=== PATIENT | male | born 1995 | race African-American/Black ===

== ENCOUNTER 2019-06-27 21:43 | Emergency (ER) | payer SELFPAY ==
[2019-06-27 21:45] VITALS: BP 139/76; PULSE 77; RESP 20; O2SAT 100
--- NOTE | 2019-06-27 21:54 | DI.RAD.S_ITS ---
PROCEDURE: XR CHEST 1V INDICATIONS: chest pain TECHNIQUE: One view of the chest was acquired. COMPARISON: None. FINDINGS: Surgical changes and devices: None. Lungs and pleura: Lungs are clear. No pleural effusions or pneumothorax. Mediastinum: Mediastinal contours appear normal. Heart size is normal. Bones and chest wall: No suspicious bony lesions. Overlying soft tissues appear unremarkable. IMPRESSION: Normal for age, source of current chest pain symptoms is not seen. Dictated by: Sd Wilburn M.D. on 06/28/2019 at 5:51 Approved by: Sd Wilburn M.D. on 06/28/2019 at 5:52
[2019-06-27 22:16] LABS: Add Manual Diff / Slide Review NO; Basophils Absolute Auto 0 /uL (0-100); Basophils Percent Auto 0.6 % (0-2); Eosinophils Absolute Auto 100 /uL (0-450); Eosinophils Percent Auto 1.9 % (2-4); Hematocrit 45.9 % (41-53); Hemoglobin 16.2 g/dL (13.5-17.5); Lymphocytes Absolute Auto 2900 /uL (1100-4500); Lymphocytes Percent Auto 51.3 % (25-40); Mean Corpuscular HGB Conc 35.2 % (30-36); Mean Corpuscular Hemoglobin 30.1 PG (26-34); Mean Corpuscular Volume 85.6 fL (80-100); Monocytes Absolute Auto 400 /uL (0-900); Monocytes Percent Auto 6.8 % (3-14); Neutrophils Absolute Auto 2200 /uL (1500-7000); Neutrophils Percent Auto 39.4 % (50-75); Platelet Count 174 X10^3/uL (150-400); Red Blood Cell Count 5.36 X10^6/uL (4.5-5.9); Red Cell Distribution Width 13.5 % (11.6-14.8); White Blood Cell Count 5.6 X10^3/uL (4.5-11.0)
[2019-06-27 22:18] LABS: INR 1.2 (0.9-1.3); Prothrombin Time 13.3 SECONDS (10.1-12.7)
[2019-06-27 22:21] LABS: PTT Partial Thromboplastin Tim 34 SECONDS (26.4-36.2)
[2019-06-27 22:23] LABS: Alanine Aminotransferase 20 IU/L (21-72); Albumin 4.3 g/dL (3.5-5.0); Albumin Globulin Ratio 1.2 (1.0-2.8); Alkaline Phosphatase 94 U/L (38-126); Aspartate Aminotransferase 29 IU/L (17-59); Bilirubin Total 2.2 mg/dL (0.2-1.3); Blood Urea Nitrogen 9 mg/dL (9-20); Calcium 9.3 mg/dL (8.4-10.2); Carbon Dioxide 32 mmol/L (22-32); Chloride 100 mmol/L (98-107); Creatine Kinase 320 U/L (55-170); Estimated Glomerular Filt Rate > 60.0 mL/min (>60); Globulin 3.5 g/dL (1.7-4.1); Glucose 145 mg/dL (70-100); HEMOLYSIS < 15 (0-50); Lipase 103 U/L (23-300); Potassium 3.4 mmol/L (3.4-5.1); Sodium 138 mmol/L (137-145); Total Protein 7.8 g/dL (6.3-8.2)
[2019-06-27 22:35] LABS: Troponin I < 0.012 ng/mL (0.01-0.034)
[2019-06-27 22:39] LABS: CKMB % Relative Index 0.3 % (1.5-5.0); Creatine Kinase MB 0.98 ng/mL (<2.37)
[2019-06-28 01:34] VITALS: BP 115/66; PULSE 52; RESP 16; TEMP 36.4; O2SAT 100
--- NOTE | 2019-06-28 02:40 | ED.CHESTPAIN ---
HPI - Chest Pain General Chief Complaint: Chest Pain Stated Complaint: TIGHTNESS IN CHEST, LEFT ARM TINGLING Time Seen by Provider: 06/28/19 02:29 Source: patient Mode of arrival: ambulatory Limitations: no limitations History of Present Illness HPI narrative: Patient complains of a right-sided, focal chest pain that began at approximately 9:00 p.m. tonight. He states that the pain subsided after a short time, but evolved into a feeling of compression or pressure in his chest overall. Patient denies shortness of breath. No cough or fever recently. No acid reflux. No history of heart or lung problems. Patient states he smokes marijuana occasionally but no tobacco. Patient states his symptoms are entirely gone now. He denies abdominal pain, nausea, or vomiting. No other complaints at this time. Related Data Allergies Allergy/AdvReac Type Severity Reaction Status Date / Time Penicillins Allergy Verified 06/27/19 21:54 Review of Systems Constitutional Denies chills, Denies fever(s), Denies lethargy and Denies weakness Eyes Denies change in vision, Denies eye discharge, Denies irritation and Denies loss of vision ENT Ears, Nose, Mouth, and Throat: Denies change in voice, Denies neck pain and Denies sore throat Cardiovascular Reports chest pain, Denies irregular heart rhythm, Denies lightheadedness, Denies palpitations, Denies dyspnea, Denies dyspnea on exertion and Denies orthopnea Respiratory Denies cough, Denies dyspnea, Denies dyspnea on exertion and Denies wheezing Gastrointestinal Gastrointestinal: Denies abdominal pain, Denies change in bowel habits, Denies diarrhea, Denies nausea and Denies vomiting Genitourinary Denies hematuria, Denies flank pain, Denies urinary incontinence and Denies urinary urgency Musculoskeletal Denies neck pain Integumentary/Breasts Denies pruritus, Denies erythema, Denies rash and Denies wounds Neurologic Denies confusion, Denies loss of vision and Denies weakness Psychiatric Denies anxiety, Denies confusion, Denies depression, Denies homicidal ideation and Denies suicidal ideation Endocrine Denies palpitations Hematologic/Lymphatic Denies easy bruising Allergic/Immunologic Denies wheezing [facility] Medical History Healthy adult (Acute) Surgical History No pertinent past surgical history (Acute) Social History Smoking Status: Never smoker Social History Smoking Status: Never smoker Exam Initial Vital Signs Initial Vital Signs: Vital Signs Pulse Rate 77 06/27/19 21:45 Respiratory Rate 20 06/27/19 21:45 Blood Pressure 139/76 06/27/19 21:45 Pulse Oximetry 100 06/27/19 21:45 Const General: cooperative and well developed Nutritional Appearance: well nourished Orientation: alert, awake, oriented x3 and not confused [facility] Head: normocephalic and atraumatic Ears: external ears normal Nose: external nose normal and No nasal discharge Face and sinus: face symmetric and No dry mucous membranes Mouth: oral mucosae normal and moist mucous membranes Teeth and gingiva: dentition normal Eyes General: appearance normal, both eyes and all related structures Eyelids: eyelids normal Conjunctivae: conjunctivae normal Sclera: sclerae normal Pupils: PERRL EOM: EOM intact bilaterally Neck Neck: normal visual inspection, trachea midline, No lymphadenopathy, No midline deformity and No JVD Lymphatic: No lymphedema Chest Chest: normal inspection of the chest Resp Effort & Inspection: normal respiratory effort, able to speak in complete sentences, no respiratory distress and no use of accessory muscles Auscultation: clear to auscultation bilaterally, no rales, no rhonchi and no wheezes Cardio Rate: regular rate Rhythm: regular rhythm Heart Sounds: no click, no gallops, no murmurs and no rubs Pulses: normal peripheral pulses GI Inspection: non-distended Palpation: soft, no hepatosplenomegaly, No guarding, No pulsatile mass and No tender Auscultation: normal bowel sounds Back/Spine/Pelvis Back: No CVA tenderness Cervical Spine: cervical ROM normal and No pain with cervical ROM Thoracic/Lumbar Spine: thoracic and lumbar spine normal to inspection Skin General: no rashes or lesions noted, No jaundice and No petechiae Neuro General: alert, oriented x3, gait normal and no focal motor deficits Speech: speech normal Extrem General: full ROM, no clubbing, cyanosis or edema, no pedal edema and no calf tenderness Psych Appearance: well kempt Mental Status: mental status grossly normal Attitude: cooperative Thought Content: normal and suicidality Judgment: judgment good Course Course Narrative: Labs and chest x-ray were performed on the patient per nursing protocol, and found to be unremarkable. The patient was very well-appearing in the emergency department, and I did not find evidence of a serious condition causing his symptoms. We discussed symptomatic management at home, as well as the usual indications for return. Orders Ordered: ED Orders 06/27/19 21:54 XR chest 1V Stat EKG-12 Lead Stat 06/27/19 22:05 Complete Blood Count AUTO DIFF Stat Comprehensive Metabolic Panel Stat Lipase Stat Partial Thromboplastin Time Stat Prothrombin Time INR Stat Troponin & CK Cardiac Panel Stat Vital Signs - 8 hr 06/27/19 21:45 06/28/19 01:34 Temperature 97.6 F Pulse Rate 77 52 L Respiratory Rate 20 16 Blood Pressure 139/76 Blood Pressure [Left Arm] 115/66 Pulse Oximetry 100 100 MDM - Chest Pain Medical Records Data Attestation: I reviewed the patient's medical records. Lab Data Attestation: I reviewed the patient's lab results. Result diagrams: 06/27/19 22:05 06/27/19 22:05 Lab Results 06/27/19 06/27/19 06/27/19 Range/Units 22:05 22:05 22:05 WBC 5.6 (4.5-11.0) X10^3/uL RBC 5.36 (4.5-5.9) X10^6/uL Hgb 16.2 (13.5-17.5) g/dL Hct 45.9 (41-53) % MCV 85.6 (80-100) fL MCH 30.1 (26-34) PG MCHC 35.2 (30-36) % RDW 13.5 (11.6-14.8) % Plt Count 174 (150-400) X10^3/uL Neut % (Auto) 39.4 L (50-75) % Lymph % (Auto) 51.3 H (25-40) % [place] % (Auto) 6.8 (3-14) % Eos % (Auto) 1.9 L (2-4) % Baso % (Auto) 0.6 (0-2) % Neut # (Auto) 2200 (7641-8321) /uL Lymph # (Auto) 2900 (6039-9304) /uL [place] # (Auto) 400 (0-900) /uL Eos # (Auto) 100 (0-450) /uL Baso # (Auto) 0 (0-100) /uL PT 13.3 H (10.1-12.7) SECONDS INR 1.2 (0.9-1.3) APTT 34 (26.4-36.2) SECONDS Sodium 138 (137-145) mmol/L Potassium 3.4 (3.4-5.1) mmol/L Chloride 100 (98-107) mmol/L Carbon Dioxide 32 (22-32) mmol/L BUN 9 (9-20) mg/dL Creatinine 0.90 (0.66-1.25) mg/dL Estimated GFR > 60.0 (>60) mL/min BUN/Creatinine Ratio 10.0 (6-22) Glucose 145 H (70-100) mg/dL Calcium 9.3 (8.4-10.2) mg/dL Total Bilirubin 2.2 H (0.2-1.3) mg/dL AST 29 (17-59) IU/L ALT 20 L (21-72) IU/L Alkaline Phosphatase 94 (38-126) U/L Total Creatine Kinase 320 H (55-170) U/L CK-MB (CK-2) 0.98 (<2.37) ng/mL CK-MB (CK-2) Rel Index 0.3 L (1.5-5.0) % Troponin I < 0.012 (0.01-0.034) ng/mL Total Protein 7.8 (6.3-8.2) g/dL Albumin 4.3 (3.5-5.0) g/dL Globulin 3.5 (1.7-4.1) g/dL Albumin/Globulin Ratio 1.2 (1.0-2.8) Lipase 103 (23-300) U/L ECG Data Attestation: I personally reviewed and interpreted this ECG as follows: (See below) Interpretation: Twelve lead EKG performed June 27, 2019, at 9:51 p.m., as follows: Regular ventricular rhythm with a rate of 72 beats per minute [place] interval 161 milliseconds QA wrist duration 97 millisecond QTC interval 366 milliseconds No ectopy No significant ST T wave changes Normal axis Interpretation: Normal sinus rhythm; possible right ventricular conduction delay; no signs of acute ischemia; borderline EKG as interpreted by ED . Discharge Plan Departure Patient Disposition: Home Clinical Impression: Atypical chest pain Discharge Date/Time: 06/28/19 03:04 Interventions: ED Discharge Assessment Last Done: 06/28/19 03:04 Instructions: DI for Chest Pain Referrals: [facility] [Provider Group]
--- NOTE | 2019-06-28 02:44 | ED_ITS ---
HPI - Chest Pain General Chief Complaint: Chest Pain Stated Complaint: TIGHTNESS IN CHEST, LEFT ARM TINGLING Time Seen by Provider: 06/28/19 02:29 Source: patient Mode of arrival: ambulatory Limitations: no limitations History of Present Illness HPI narrative: Patient complains of a right-sided, focal chest pain that began at approximately 9:00 p.m. tonight. He states that the pain subsided after a short time, but evolved into a feeling of compression or pressure in his chest overall. Patient denies shortness of breath. No cough or fever recently. No acid reflux. No history of heart or lung problems. Patient states he smokes marijuana occasionally but no tobacco. Patient states his symptoms are entirely gone now. He denies abdominal pain, nausea, or vomiting. No other complaints at this time. Related Data Allergies Allergy/AdvReac Type Severity Reaction Status Date / Time Penicillins Allergy Verified 06/27/19 21:54 Review of Systems Constitutional Denies chills, Denies fever(s), Denies lethargy and Denies weakness Eyes Denies change in vision, Denies eye discharge, Denies irritation and Denies loss of vision ENT Ears, Nose, Mouth, and Throat: Denies change in voice, Denies neck pain and Denies sore throat Cardiovascular Reports chest pain, Denies irregular heart rhythm, Denies lightheadedness, Denies palpitations, Denies dyspnea, Denies dyspnea on exertion and Denies orthopnea Respiratory Denies cough, Denies dyspnea, Denies dyspnea on exertion and Denies wheezing Gastrointestinal Gastrointestinal: Denies abdominal pain, Denies change in bowel habits, Denies diarrhea, Denies nausea and Denies vomiting Genitourinary Denies hematuria, Denies flank pain, Denies urinary incontinence and Denies urinary urgency Musculoskeletal Denies neck pain Integumentary/Breasts Denies pruritus, Denies erythema, Denies rash and Denies wounds Neurologic Denies confusion, Denies loss of vision and Denies weakness Psychiatric Denies anxiety, Denies confusion, Denies depression, Denies homicidal ideation and Denies suicidal ideation Endocrine Denies palpitations Hematologic/Lymphatic Denies easy bruising Allergic/Immunologic Denies wheezing [facility] Medical History Healthy adult (Acute) Surgical History No pertinent past surgical history (Acute) Social History Smoking Status: Never smoker Social History Smoking Status: Never smoker Exam Initial Vital Signs Initial Vital Signs: Vital Signs Pulse Rate 77 06/27/19 21:45 Respiratory Rate 20 06/27/19 21:45 Blood Pressure 139/76 06/27/19 21:45 Pulse Oximetry 100 06/27/19 21:45 Const General: cooperative and well developed Nutritional Appearance: well nourished Orientation: alert, awake, oriented x3 and not confused [facility] Head: normocephalic and atraumatic Ears: external ears normal Nose: external nose normal and No nasal discharge Face and sinus: face symmetric and No dry mucous membranes Mouth: oral mucosae normal and moist mucous membranes Teeth and gingiva: dentition normal Eyes General: appearance normal, both eyes and all related structures Eyelids: eyelids normal Conjunctivae: conjunctivae normal Sclera: sclerae normal Pupils: PERRL EOM: EOM intact bilaterally Neck Neck: normal visual inspection, trachea midline, No lymphadenopathy, No midline deformity and No JVD Lymphatic: No lymphedema Chest Chest: normal inspection of the chest Resp Effort & Inspection: normal respiratory effort, able to speak in complete sentences, no respiratory distress and no use of accessory muscles Auscultation: clear to auscultation bilaterally, no rales, no rhonchi and no wheezes Cardio Rate: regular rate Rhythm: regular rhythm Heart Sounds: no click, no gallops, no murmurs and no rubs Pulses: normal peripheral pulses GI Inspection: non-distended Palpation: soft, no hepatosplenomegaly, No guarding, No pulsatile mass and No tender Auscultation: normal bowel sounds Back/Spine/Pelvis Back: No CVA tenderness Cervical Spine: cervical ROM normal and No pain with cervical ROM Thoracic/Lumbar Spine: thoracic and lumbar spine normal to inspection Skin General: no rashes or lesions noted, No jaundice and No petechiae Neuro General: alert, oriented x3, gait normal and no focal motor deficits Speech: speech normal Extrem General: full ROM, no clubbing, cyanosis or edema, no pedal edema and no calf tenderness Psych Appearance: well kempt Mental Status: mental status grossly normal Attitude: cooperative Thought Content: normal and suicidality Judgment: judgment good Course Course Narrative: Labs and chest x-ray were performed on the patient per nursing protocol, and found to be unremarkable. The patient was very well-appearing in the emergency department, and I did not find evidence of a serious condition causing his symptoms. We discussed symptomatic management at home, as well as the usual indications for return. Orders Ordered: ED Orders 06/27/19 21:54 XR chest 1V Stat EKG-12 Lead Stat 06/27/19 22:05 Complete Blood Count AUTO DIFF Stat Comprehensive Metabolic Panel Stat Lipase Stat Partial Thromboplastin Time Stat Prothrombin Time INR Stat Troponin & CK Cardiac Panel Stat Vital Signs - 8 hr 06/27/19 21:45 06/28/19 01:34 Temperature 97.6 F Pulse Rate 77 52 L Respiratory Rate 20 16 Blood Pressure 139/76 Blood Pressure [Left Arm] 115/66 Pulse Oximetry 100 100 MDM - Chest Pain Medical Records Data Attestation: I reviewed the patient's medical records. Lab Data Attestation: I reviewed the patient's lab results. Result diagrams: 06/27/19 22:05 06/27/19 22:05 Lab Results 06/27/19 06/27/19 06/27/19 Range/Units 22:05 22:05 22:05 WBC 5.6 (4.5-11.0) X10^3/uL RBC 5.36 (4.5-5.9) X10^6/uL Hgb 16.2 (13.5-17.5) g/dL Hct 45.9 (41-53) % MCV 85.6 (80-100) fL MCH 30.1 (26-34) PG MCHC 35.2 (30-36) % RDW 13.5 (11.6-14.8) % Plt Count 174 (150-400) X10^3/uL Neut % (Auto) 39.4 L (50-75) % Lymph % (Auto) 51.3 H (25-40) % [place] % (Auto) 6.8 (3-14) % Eos % (Auto) 1.9 L (2-4) % Baso % (Auto) 0.6 (0-2) % Neut # (Auto) 2200 (3430-8182) /uL Lymph # (Auto) 2900 (4643-8956) /uL [place] # (Auto) 400 (0-900) /uL Eos # (Auto) 100 (0-450) /uL Baso # (Auto) 0 (0-100) /uL PT 13.3 H (10.1-12.7) SECONDS INR 1.2 (0.9-1.3) APTT 34 (26.4-36.2) SECONDS Sodium 138 (137-145) mmol/L Potassium 3.4 (3.4-5.1) mmol/L Chloride 100 (98-107) mmol/L Carbon Dioxide 32 (22-32) mmol/L BUN 9 (9-20) mg/dL Creatinine 0.90 (0.66-1.25) mg/dL Estimated GFR > 60.0 (>60) mL/min BUN/Creatinine Ratio 10.0 (6-22) Glucose 145 H (70-100) mg/dL Calcium 9.3 (8.4-10.2) mg/dL Total Bilirubin 2.2 H (0.2-1.3) mg/dL AST 29 (17-59) IU/L ALT 20 L (21-72) IU/L Alkaline Phosphatase 94 (38-126) U/L Total Creatine Kinase 320 H (55-170) U/L CK-MB (CK-2) 0.98 (<2.37) ng/mL CK-MB (CK-2) Rel Index 0.3 L (1.5-5.0) % Troponin I < 0.012 (0.01-0.034) ng/mL Total Protein 7.8 (6.3-8.2) g/dL Albumin 4.3 (3.5-5.0) g/dL Globulin 3.5 (1.7-4.1) g/dL Albumin/Globulin Ratio 1.2 (1.0-2.8) Lipase 103 (23-300) U/L ECG Data Attestation: I personally reviewed and interpreted this ECG as follows: (See below) Interpretation: Twelve lead EKG performed June 27, 2019, at 9:51 p.m., as fo llows: Regular ventricular rhythm with a rate of 72 beats per minute [place] interval 161 milliseconds QA wrist duration 97 millisecond QTC interval 366 milliseconds No ectopy No significant ST T wave changes Normal axis Interpretation: Normal sinus rhythm; possible right ventricular conduction delay; no signs of acute ischemia; borderline EKG as interpreted by ED MD. Discharge Plan Departure Patient Disposition: Home Clinical Impression: Atypical chest pain Discharge Date/Time: 06/28/19 03:04 Interventions: ED Discharge Assessment Last Done: 06/28/19 03:04 Instructions: AVEL for Chest Pain Referrals: [facility] [Provider Group]
[2019-06-28 03:04] VITALS: BP 124/64; PULSE 58; RESP 16; TEMP 36.6; O2SAT 100
== END 2019-06-28 03:04 | disposition home or self-care (01) ==
PROVIDERS: Emergency Provider Emergency Medicine
DX: R07.89 Other chest pain (principal)
CPT/HCPCS: 36415; 71045; 80053; 82550; 82553; 83690; 84484; 85025; 85610; 85730; 93005; 93010; 99283; 99285

== ENCOUNTER 2019-07-21 19:26 | Emergency (ER) | payer SELFPAY ==
[2019-07-21 19:33] VITALS: BP 135/77; PULSE 68; RESP 23; TEMP 36.9; O2SAT 100; BMI 22.4
--- NOTE | 2019-07-21 19:33 | DI.RAD.S_ITS ---
PROCEDURE: XR CHEST 2V INDICATIONS: chest pain TECHNIQUE: 2 views of the chest were acquired. COMPARISON: [facility], CR, XR CHEST 1V, 06/27/2019, 22:09. FINDINGS: Surgical changes and devices: None. Lungs and pleura: Lungs are clear. No pleural effusions or pneumothorax. Mediastinum: Mediastinal contours are normal. Heart size is normal. Bones and chest wall: No suspicious bony abnormalities. Soft tissues appear unremarkable. IMPRESSION: No acute cardiopulmonary disease process. Dictated by: Brittany Painter MD, PhD on 07/21/2019 at 20:02 Approved by: Brittany Painter MD, PhD on 07/21/2019 at 20:02
--- NOTE | 2019-07-21 19:36 | ED_ITS ---
HPI - Chest Pain General Chief Complaint: Chest Pain Stated Complaint: chest pain Time Seen by Provider: 07/21/19 19:27 Source: patient Mode of arrival: ambulatory Limitations: no limitations History of Present Illness HPI narrative: 23-year-old male nonsmoker with benign medical history presents with a chief complaint of vague anterior chest pain which has been present for many weeks. He decided to come be seen tonight when he lifted some heavy objects and he felt pressure near his sternum. He denies associated symptoms such as dizziness, weakness or lightheadedness. He denies any shortness of breath, cough or obvious injury. He states his pain is worse with deep breaths or palpation and is not changed by leaning forward. He denies any strong family history of cardiac disease. MD complaint: chest pain Duration: intermittent Pain location: substernal Severity: mild Quality: sharp Pain radiation: none Relieving factors: rest Exacerbating factors: inspiration and palpation Treatments prior to arrival chest pain: none Related Data Previous Rx's Medication Instructions Recorded ketorolac 10 mg PO Q6H PRN #14 tab 07/21/19 Allergies Allergy/AdvReac Type Severity Reaction Status Date / Time Penicillins Allergy Verified 07/21/19 19:39 Review of Systems Constitutional Constitutional: Denies chills, Denies fatigue, Denies fever(s), Denies frequent falls, Denies lethargy and Denies weakness Eyes Eyes: Denies change in vision, Denies eye discharge, Denies irritation and Denies loss of vision ENT Ears, Nose, Mouth, and Throat: Denies change in voice, Denies dizziness, Denies neck pain, Denies sore throat and Denies throat swelling Cardiovascular Cardiovascular: Reports chest pain, Denies irregular heart rhythm, Denies lightheadedness, Denies palpitations, Denies dyspnea, Denies dyspnea on exertion and Denies orthopnea Respiratory Respiratory: Denies cough, Denies dyspnea, Denies dyspnea on exertion and Denies wheezing Gastrointestinal Gastrointestinal: Denies abdominal pain, Denies change in bowel habits, Denies diarrhea, Denies nausea and Denies vomiting Genitourinary Genitourinary: Denies hematuria, Denies flank pain, Denies urinary incontinence and Denies urinary urgency Musculoskeletal Musculoskeletal: Denies back pain, Denies muscle weakness, Denies neck pain, Denies numbness and Denies tingling Integumentary/Breasts Skin/Breast: Denies pruritus, Denies erythema, Denies rash and Denies wounds Neurologic Neurologic: Denies behavioral changes, Denies confusion, Denies dizziness, Denies frequent falls, Denies loss of vision, Denies numbness, Denies tingling and Denies weakness Psychiatric Psychiatric: Denies anxiety, Denies behavioral changes, Denies confusion, Denies depression, Denies homicidal ideation and Denies suicidal ideation Endocrine Endocrine: Denies fatigue, Denies flushing and Denies palpitations Hematologic/Lymphatic Hematologic/Lymphatic: Denies easy bruising Allergic/Immunologic Allergic/Immunologic: Denies urticaria, Denies throat swelling and Denies whe ezing [facility] Medical History Healthy adult (Acute) Surgical History No pertinent past surgical history (Acute) Social History Smoking Status: Never smoker Social History Smoking Status: Never smoker Exam Narrative Exam Narrative: GENERAL: [23] year old patient appears stated age. Well- nourished, well-developed patient, in mild distress. HEAD: Atraumatic. Normocephalic. EYES: Pupils equal round and reactive. Extraocular motions intact. No scleral icterus. No injection or drainage. ENT: Nose without bleeding, purulent drainage. Throat without erythema, tonsillar hypertrophy or exudate. Airway patent. NECK: Trachea midline. Non tender CARDIOVASCULAR: Tender to palpate in the anterior chest Regular rate and rhythm without murmurs, gallops, or rubs. RESPIRATORY: Clear to auscultation. Breath sounds equal bilaterally. No wheezes, rales, or rhonchi. GASTROINTESTINAL: Abdomen soft, non-tender, nondistended. EXTREMITIES: No edema or joint tenderness. BACK: Nontender without deformity or crepitance. No flank tenderness. NEURO: AOx3. SKIN: No rash or erythema of visible areas Initial Vital Signs Initial Vital Signs: Vital Signs Temperature 98.4 F 07/21/19 19:33 Pulse Rate 68 07/21/19 19:33 Respiratory Rate 23 07/21/19 19:33 Blood Pressure 135/77 07/21/19 19:33 Pulse Oximetry 100 07/21/19 19:33 Course Orders Ordered: ED Orders 07/21/19 19:33 XR chest 2V Stat EKG-12 Lead Stat MDM - Chest Pain Imaging Data Chest x-ray: Radiologist's impression: No acute process ECG Data Attestation: I personally reviewed and interpreted this ECG as follows: Interpretation: EKG is normal sinus rhythm rate [63 ] and free of any signs of ischemia or ectopy. No ST segmental elevation or depression. No T wave inversions MDM Narrative Medical decision making narrative: Multiple etiologies for patient's symptoms considered including: [Costochondritis versus ischemic heart disease versus pulmonary embolism versus a] Patient's symptoms improved or duration of stay with above-stated therapies. Findings and discharge diagnosis discussed with patient/family followed by verbalization of understanding Return precautions discussed with patient/family whom verbalize understanding. Discharge Plan Departure Patient Disposition: Home Clinical Impression: Atypical chest pain Discharge Date/Time: 07/21/19 21:08 Instructions: DI for Atypical Chest Pain Activity Restrictions/Additional Instructions: *You have been diagnosed with [atypical chest pain] *What to do: *Take medications as directed *Follow up with your primary care provider in 2-3 days, call for an appointment. Let them know you were seen in the Emergency Department and that we ask that you be seen in follow up *Return to ER if you should have any new, worsening or concerning symptoms Prescriptions: New ketorolac 10 mg tablet 10 mg PO Q6H PRN (Reason: pain) Qty: 14 RF: 0
[2019-07-21 20:42] VITALS: BP 130/76; PULSE 55; RESP 15; O2SAT 99
[2019-07-21 21:08] VITALS: BP 122/67; PULSE 67; RESP 20; O2SAT 99
== END 2019-07-21 21:08 | disposition home or self-care (01) ==
PROVIDERS: Emergency Provider Emergency Medicine
DX: R07.89 Other chest pain (principal)
CPT/HCPCS: 71046; 93005; 99282; 99284

== ENCOUNTER 2019-08-14 18:19 | Emergency (ER) | payer OTHER, SELFPAY ==
[2019-08-14 18:48] VITALS: BP 139/74; PULSE 88; RESP 13; TEMP 36.8; O2SAT 100
--- NOTE | 2019-08-14 19:13 | ED.CHESTPAIN ---
HPI - Chest Pain General Chief Complaint: Chest Pain Stated Complaint: COUGH,CHEST PAIN HEADACHE Time Seen by Provider: 08/14/19 19:11 Source: patient Mode of arrival: Ambulatory Limitations: no limitations History of Present Illness HPI narrative: The patient arrives with faint midsternal chest pain, prep blood earlier today. He also had spasm in his left neck that was transient. He has no chest pain, dyspnea, or neck pain at this time. This is his 3rd evaluation in 2 months. Prior cardiac evaluation reveals normal labs, normal cardiac enzymes, and normal EKG. The patient describes pain along the sternum. He has no sore throat, cough, or abdominal pain. He has no history consistent with GERD. He is a former smoker. He has no chronic respiratory problems or cardiac problems. He has a physical job, with a lot a lifting. He had no symptoms prior to 2 months ago. Symptoms then have been intermittent, generally located to the same spot on the central sternum. The spasm in the neck was no. He denies URI symptoms, sore throat or cough. He has had no fever or chills. He is currently not sick. He is currently asymptomatic. He has had no recent travel, he has no leg pain, he has no hemoptysis. Related Data Previous Rx's Medication Instructions Recorded ketorolac 10 mg PO Q6H PRN #14 tab 07/21/19 Allergies Allergy/AdvReac Type Severity Reaction Status Date / Time Penicillins Allergy Verified 07/21/19 19:39 Review of Systems Constitutional Constitutional: Denies chills, Denies fever(s), Denies lethargy and Denies weakness Eyes Comments: No complaints ENT Ears, Nose, Mouth, and Throat: Denies mouth pain and Denies sore throat Cardiovascular Cardiovascular: Reports as per HPI, Reports chest pain at rest and Denies dyspnea Respiratory Respiratory: Denies cough, Denies dyspnea and Denies wheezing Gastrointestinal Gastrointestinal: Denies abdominal pain, Denies nausea and Denies vomiting Musculoskeletal Comments: Left neck spasm, see HPI. Integumentary/Breasts Skin/Breast: Denies erythema and Denies rash Neurologic Neurologic: Denies weakness Psychiatric Psychiatric: Denies anxiety and Denies depression Allergic/Immunologic Allergic/Immunologic: Denies wheezing [facility] Medical History Healthy adult (Acute) Surgical History No pertinent past surgical history (Acute) Social History Smoking Status: Never smoker Social History (Updated 08/14/19 @ 19:44 by Ike Mortensen MD) Smoking Status: Former smoker substance use type: marijuana Exam Initial Vital Signs Initial Vital Signs: Vital Signs Temperature 98.3 F 08/14/19 18:48 Pulse Rate 88 08/14/19 18:48 Respiratory Rate 13 08/14/19 18:48 Blood Pressure 139/74 08/14/19 18:48 Pulse Oximetry 100 08/14/19 18:48 Const General: cooperative, well developed and No anxious Nutritional Appearance: well nourished Orientation: alert, awake and oriented x3 HENMT Head: normocephalic and atraumatic Ears: external ears normal and TM's normal bilaterally Nose: external nose normal Face and sinus: sinuses nontender, face symmetric, no sinus tenderness and No dry mucous membranes Mouth: oral mucosae normal and moist mucous membranes Teeth and gingiva: dentition normal Throat: tonsils normal and uvula midline Eyes Periorbital: periorbital findings normal Conjunctivae: conjunctivae normal Pupils: PERRL EOM: EOM intact bilaterally Neck Neck: full ROM, supple, No lymphadenopathy and No JVD Chest Chest: tenderness (Left mid sternal margin) Resp Effort & Inspection: normal respiratory effort and able to speak in complete sentences Auscultation: clear to auscultation bilaterally, no rales, no rhonchi and no wheezes Cardio Rate: regular rate Rhythm: regular rhythm Heart Sounds: S1 normal, S2 normal, no click, no gallops, no murmurs and no rubs Pulses: normal peripheral pulses GI Inspection: non-distended Palpation: soft, no hepatosplenomegaly, No guarding, No pulsatile mass and No tender Auscultation: normal bowel sounds Back/Spine/Pelvis Back: normal to inspection Skin General: no rashes or lesions noted and No petechiae Neuro General: alert, oriented x3, gait normal and no focal motor deficits Speech: speech normal Extrem General: full ROM, no pedal edema and no calf tenderness Course Course Course Narrative: The patient's recent records reviewed. He has a history and findings more consistent with costochondritis than respiratory or cardiac disease. Limited labs were repeated. There is no evidence of acute coronary events. He was previously directed to take Motrin for pain, the Motrin does help when it occurs. Orders Ordered: ED Orders 08/14/19 18:49 EKG-12 Lead Stat 08/14/19 19:48 Complete Blood Count AUTO DIFF Stat D Dimer Stat Troponin & CK Cardiac Panel Stat Vital Signs Vital signs: Vital Signs - 8 hr 08/14/19 18:48 08/14/19 19:56 08/14/19 20:09 Temperature 98.3 F Pulse Rate 88 74 77 Respiratory Rate 13 24 17 Blood Pressure 139/74 Blood Pressure [Right Arm] 120/62 110/66 Pulse Oximetry 100 100 100 MDM - Chest Pain Lab Data Result diagrams: 08/14/19 19:48 Labs: Lab Results 08/14/19 08/14/19 08/14/19 Range/Units 19:48 19:48 19:48 WBC 5.9 (4.5-11.0) X10^3/uL RBC 5.28 (4.5-5.9) X10^6/uL Hgb 15.9 (13.5-17.5) g/dL Hct 45.1 (41-53) % MCV 85.4 (80-100) fL MCH 30.1 (26-34) PG MCHC 35.2 (30-36) % RDW 13.1 (11.6-14.8) % Plt Count 173 (150-400) X10^3/uL Neut % (Auto) 46.0 L (50-75) % Lymph % (Auto) 43.8 H (25-40) % Morehouse % (Auto) 7.5 (3-14) % Eos % (Auto) 1.7 L (2-4) % Baso % (Auto) 1.0 (0-2) % Neut # (Auto) 2700 (4642-6497) /uL Lymph # (Auto) 2600 (8271-2494) /uL Morehouse # (Auto) 400 (0-900) /uL Eos # (Auto) 100 (0-450) /uL Baso # (Auto) 100 (0-100) /uL D-Dimer < 200 (<230) ng/mL Total Creatine Kinase 232 H (55-170) U/L CK-MB (CK-2) 0.72 (<2.37) ng/mL CK-MB (CK-2) Rel Index 0.3 L (1.5-5.0) % Troponin I < 0.012 (0.01-0.034) ng/mL ECG Data Attestation: I personally reviewed and interpreted this ECG as follows: (Normal sinus rhythm rate 60 beats per minute. Early repolarization noted. No acute ST T wave changes. Normal intervals. No ectopy.) Discharge Plan Departure Patient Disposition: Home Clinical Impression: Costalchondritis Discharge Date/Time: 08/14/19 20:35 Instructions: Costochondritis Activity Restrictions/Additional Instructions: Motrin every 6 hours as needed for pain. As we discussed I would expect the pain to eventually cease. If you have a significant increase in pain that is persistent, return to the ER. Prescriptions: No Action ketorolac 10 mg tablet 10 mg PO Q6H PRN (Reason: pain) Qty: 14 RF: 0
[2019-08-14 19:53] LABS: Add Manual Diff / Slide Review NO; Basophils Absolute Auto 100 /uL (0-100); Eosinophils Absolute Auto 100 /uL (0-450); Eosinophils Percent Auto 1.7 % (2-4); Hematocrit 45.1 % (41-53); Hemoglobin 15.9 g/dL (13.5-17.5); Lymphocytes Absolute Auto 2600 /uL (1100-4500); Lymphocytes Percent Auto 43.8 % (25-40); Mean Corpuscular HGB Conc 35.2 % (30-36); Mean Corpuscular Hemoglobin 30.1 PG (26-34); Mean Corpuscular Volume 85.4 fL (80-100); Monocytes Absolute Auto 400 /uL (0-900); Monocytes Percent Auto 7.5 % (3-14); Neutrophils Absolute Auto 2700 /uL (1500-7000); Platelet Count 173 X10^3/uL (150-400); Red Blood Cell Count 5.28 X10^6/uL (4.5-5.9); Red Cell Distribution Width 13.1 % (11.6-14.8); White Blood Cell Count 5.9 X10^3/uL (4.5-11.0)
[2019-08-14 19:56] VITALS: BP 120/62; PULSE 74; RESP 24; O2SAT 100
[2019-08-14 20:04] LABS: Creatine Kinase 232 U/L (55-170)
[2019-08-14 20:05] LABS: D Dimer < 200 ng/mL (<230)
[2019-08-14 20:09] VITALS: BP 110/66; PULSE 77; RESP 17; O2SAT 100
[2019-08-14 20:17] LABS: Troponin I < 0.012 ng/mL (0.01-0.034)
[2019-08-14 20:19] LABS: CKMB % Relative Index 0.3 % (1.5-5.0); Creatine Kinase MB 0.72 ng/mL (<2.37)
== END 2019-08-14 20:35 | disposition home or self-care (01) ==
PROVIDERS: Emergency Provider Emergency Medicine
DX: M94.0 Chondrocostal junction syndrome [Tietze] (principal)
CPT/HCPCS: 36415; 82550; 82553; 84484; 85025; 85379; 93005; 99282; 99284

== ENCOUNTER 2020-05-02 14:52 | Emergency (ER) | payer OTHER, SELFPAY ==
[2020-05-02 15:03] VITALS: BP 144/82; PULSE 92; RESP 14; TEMP 36; O2SAT 98; BMI 25.1
[2020-05-02 17:44] VITALS: BP 122/67; PULSE 63; RESP 16; TEMP 37.1; O2SAT 98
--- NOTE | 2020-05-03 05:23 | ED.URI ---
HPI - URI/Sore Throat General Chief Complaint: Upper Respiratory Symptoms Stated Complaint: alergic reaction since yesterday, lump in throat Time Seen by Provider: 05/02/20 19:31 Source: patient Mode of arrival: Ambulatory Limitations: no limitations History of Present Illness HPI Narrative: 24M former smoker without other medical problems presents with a chief complaint of a bump on his left anterior throat. He denies any tenderness or difficulty in swallowing. He states he thinks it just popped up yesterday and is roughly the size of a pea. He states he thinks it showed up after he vaped a kiwi flavored vape juice. He then remembered that he is allergic to kiwi and was concerned that this was an allergic reaction. He denies any swelling of face, tongue or lips. He denies any difficulty breathing or rash. MD Complaint: other Onset (ago): hour(s) Duration: constant Severity: mild Relieving factors: nothing Exacerbating factors: nothing Associated symptoms: denies other symptoms Treatments prior to arrival: none Related Data Previous Rx's Medication Instructions Recorded ketorolac 10 mg PO Q6H PRN #14 tab 07/21/19 Allergies Allergy/AdvReac Type Severity Reaction Status Date / Time Penicillins Allergy Verified 05/02/20 15:03 Review of Systems Constitutional Constitutional: Denies chills, Denies fatigue, Denies fever(s), Denies frequent falls, Denies lethargy and Denies weakness Eyes Eyes: Denies change in vision, Denies eye discharge, Denies irritation and Denies loss of vision ENT Ears, Nose, Mouth, and Throat: Denies change in voice, Denies dizziness, Denies neck pain, Denies sore throat and Denies throat swelling Comments: lymphadenopathy Cardiovascular Cardiovascular: Denies chest pain, Denies irregular heart rhythm, Denies lightheadedness, Denies palpitations, Denies dyspnea, Denies dyspnea on exertion and Denies orthopnea Respiratory Respiratory: Denies cough, Denies dyspnea, Denies dyspnea on exertion and Denies wheezing Gastrointestinal Gastrointestinal: Denies abdominal pain, Denies change in bowel habits, Denies diarrhea, Denies nausea and Denies vomiting Musculoskeletal Musculoskeletal: Denies neck pain and Denies numbness Integumentary/Breasts Skin/Breast: Denies pruritus, Denies erythema, Denies rash and Denies wounds Neurologic Neurologic: Denies behavioral changes, Denies confusion, Denies dizziness, Denies frequent falls, Denies loss of vision, Denies numbness and Denies weakness Psychiatric Psychiatric: Denies anxiety, Denies behavioral changes, Denies confusion, Denies depression, Denies homicidal ideation and Denies suicidal ideation Endocrine Endocrine: Denies fatigue, Denies flushing and Denies palpitations Hematologic/Lymphatic Hematologic/Lymphatic: Denies easy bruising Allergic/Immunologic Allergic/Immunologic: Denies urticaria, Denies throat swelling and Denies wheezing Patient History Medical History Healthy adult (Acute) Surgical History No pertinent past surgical history (Acute) Social History Smoking Status: Former smoker substance use type: marijuana Smoking Status: Former smoker alcohol intake frequency: other Substance Use Type: marijuana Exam Narrative Exam Narrative: GEN: AOx3 and in mild distress EYES: Pupils are equal, round, and reactive to light and accommodation. Extraoccular muscles are intact bilaterally. There is no subconjunctival hemorrhage or exudate. FACE: No swelling of tongue, lips, throat, or face. ENT: No pharyngeal erythema, tonsillar swelling or tonsillar exudate. Small pea sized painless anterior cervical node on the left. CHEST: Lungs are clear to auscultation bilaterally and free of wheezes, rales, or rhonchi. Heart rate is regular rhythm, there are no murmurs, clicks, rubs, or gallops. There is no chest wall tenderness. ABD: Abdomen is soft and nontender. There is no guarding or rebound. Bowel sounds are normal in all 4 quadrants. There is no mass or organomegaly. EXT: Full painless ROM of all extremities with no loss of sensation or strength. SKIN: Warm, pink, and dry. No erythema or rash Initial Vital Signs Initial Vital Signs: Vital Signs Temperature 96.8 F L 05/02/20 15:03 Pulse Rate 92 H 05/02/20 15:03 Respiratory Rate 14 05/02/20 15:03 Blood Pressure 144/82 H 05/02/20 15:03 Pulse Oximetry 98 05/02/20 15:03 MDM - URI/Sore Throat Lab Data Labs: Point of Care Testing Rapid Strep A Negative Discharge Plan Departure Patient Disposition: Home Clinical Impression: Lymphadenopathy of left cervical region Discharge Date/Time: 05/02/20 20:10 Activity Restrictions/Additional Instructions: *You have been diagnosed with [mildly swollen left anterior cervical lymph node. No evidence of strep or suggestion of systemic allergic reaction] *What to do: *Take medications as directed: Consider anti-inflammatories and possibly an [id number] antihistamine such as Benadryl or Zyrtec *Follow up with your primary care provider in 2-3 days, call for an appointment. Let them know you were seen in the Emergency Department and that we ask that you be seen in follow up *Return to ER if you should have any new, worsening or concerning symptoms, such as [increased swelling, the presence of pain, surrounding redness, warmth or other concerning symptoms] Prescriptions: No Action ketorolac 10 mg tablet 10 mg PO Q6H PRN (Reason: pain) Qty: 14 RF: 0
== END 2020-05-02 20:10 | disposition home or self-care (01) ==
PROVIDERS: Emergency Provider Emergency Medicine
DX: R59.0 Localized enlarged lymph nodes (principal)
CPT/HCPCS: 87880; 99282

== ENCOUNTER 2021-09-19 14:27 | Emergency (ER) | payer OTHER, SELFPAY ==
[2021-09-19 14:48] VITALS: BP 140/76; PULSE 74; RESP 19; TEMP 36.9; O2SAT 100; BMI 24.4
--- NOTE | 2021-09-19 16:08 | ED_ITS ---
HPI - Extremity Problem General Chief complaint: Extremity Problem,Nontraumatic Stated complaint: Pain in both wrists- no injury Time Seen by Provider: 09/19/21 16:05 Source: patient Mode of arrival: Family Vehicle Limitations: no limitations History of Present Illness HPI Narrative: PATIENT IS A 25-YEAR-OLD MALE WHO PRESENTS WITH BILATERAL WRIST PAIN ON GOING FOR about 1 year. He says it is not constant, it comes and goes. He has been wearing wrist braces while at work. He is a vipul left to repetitive movements. Left 1 seems to be a bit worse than the right. The left 1 was swollen a few days ago it is no longer swollen. No numbness tingling or weakness in his fingers. He does not exercise or do any other repetitive movements. Braces definitely seems to help. He has not taken any [id number] Tylenol or Motrin. He thought he should have it checked out today. He he denies fever or chills Related Data Home Medications Medication Instructions Recorded Confirmed No Known Home Medications 07/24/20 07/24/20 Allergies Allergy/AdvReac Type Severity Reaction Status Date / Time kiwi Allergy Mild Raw Verified 09/19/21 14:48 feeling in mouth Penicillins Allergy Verified 09/19/21 14:48 Review of Systems Review of Systems Narrative: GENERAL: Denies chills,fever HEENT: Denies throat pain RESPIRATORY: Denies dyspnea, cough, wheezing CARDIOVASCULAR: Denies chest pain, palpitations GASTROINTESTINAL: Denies nausea, vomiting MUSCULOSKELETAL: See HPI SKIN: No rash, no laceration, no pruritus NEUROLOGIC: Denies weakness, dizziness, headache, numbness 8 point review of systems is negative except for those stated above and HPI Patient History Medical History (Updated 09/19/21 @ 16:22 by Angie Alcazar DO) Healthy adult Left shoulder strain Surgical History No pertinent past surgical history Social History Smoking Status: Former smoker substance use type: marijuana Smoking Status: Former smoker alcohol intake frequency: 0-2 drinks per day Substance Use Type: marijuana Exam Initial Vital Signs Initial Vital Signs: Vital Signs Temperature 98.4 F 09/19/21 14:48 Pulse Rate 74 09/19/21 14:48 Respiratory Rate 19 09/19/21 14:48 Blood Pressure 140/76 09/19/21 14:48 Pulse Oximetry 100 09/19/21 14:48 GENERAL: Alert well-appearing 25-year-old male CARDIOVASCULAR: peripheral pulses in tact, cap refill <2 sec RESPIRATORY: No respiratory distress, speaks in full sentences without difficulty EXTREMITIES: Normal range of motion, no clubbing or edema. Neurovascularly intact Left wrist no swelling no erythema full range of motion negative Tinel's test distal radial pulse intact Right rest no no erythema full range of motion negative Tinel's test distal radial pulse and NEUROLOGICAL: Cranial nerves II through XII grossly intact. Normal gait and speech. SKIN: Warm, dry, no petechiae, no rashes or lesions. Course Vital Signs Vital signs: Vital Signs - 8 hr 09/19/21 14:48 Temperature 98.4 F Pulse Rate 74 Respiratory Rate 19 Blood Pressure 140/76 Pulse Oximetry 100 MDM - Extremity (Nontraumatic) MDM Narrative Medical decision making narrative: Patient has chronic ongoing wrist pain, no recent injury no swelling. At this time recommend strength training physical therapy and evaluation by primary care I also recommend continuing using braces while active Discharge Plan Departure Patient Disposition: Home Clinical Impression: Sprain of right wrist Qualifiers: Encounter type: initial encounter Qualified Code(s): S63.501A - Unspecified sprain of right wrist, initial encounter Sprain of left wrist Qualifiers: Encounter type: initial encounter Qualified Code(s): S63.502A - Unspecified sprain of left wrist, initial encounter Instructions: Wrist Sprain Activity Restrictions/Additional Instructions: *You have been diagnosed with bilateral wrist sprain *What to do: At this time no need for x-rays. You may need physical therapy and or some strength training which will probably help. I encourage you to use your wrist splints as he previously have while at work. *Continue to take medications as directed Ibuprofen 800 mg every 8 hours only if needed for [id number] pain. *Follow up with your primary care provider in 2-3 days *Return to ER if you should have increasing pain swelling numbness tingling weakness redness or any new, worsening or concerning symptoms Prescriptions: No Action No Known Home Medications RF: 0 Referrals: [facility] [Outside] Reg Fish MD [Physician] - Jan Marcano ARNP [Primary Care Provider] -
--- NOTE | 2021-09-19 16:19 | PC.NURSE ---
pt denies pain at this time. No deformity/swelling noted to wrists.
== END 2021-09-19 16:31 | disposition home or self-care (01) ==
PROVIDERS: Emergency Provider Emergency Medicine; PCP Registered Nurse Diabetes Educator
DX: S63.501A Unspecified sprain of right wrist, initial encounter (principal); S63.502A Unspecified sprain of left wrist, initial encounter
CPT/HCPCS: 99281

== ENCOUNTER 2021-11-22 18:53 | Emergency (ER) | payer OTHER, SELFPAY ==
[2021-11-22 19:02] VITALS: BP 141/64; PULSE 114; RESP 20; TEMP 37.2; O2SAT 100
[2021-11-22 19:32] LABS: COVID19 -Nasal RAPID POSITIVE (Negative)
--- NOTE | 2021-11-22 21:38 | ED.GENADULT ---
HPI - General Adult General Chief complaint: Upper Respiratory Symptoms Stated complaint: Headache,Chills,Fever,Cough,Sore Throat Time Seen by Provider: 11/22/21 21:23 Source: patient Mode of arrival: Ambulatory Limitations: no limitations History of Present Illness HPI narrative: Patient is an otherwise healthy 26-year-old male with approximately 24 hours of headache and chills and fever cough and sore throat. He is vaccinated against COVID-19. Has been around other individuals who have similar symptoms. Has not tried anything for symptoms prior to arrival. Related Data Home Medications Medication Instructions Recorded Confirmed No Known Home Medications 07/24/20 07/24/20 Allergies Allergy/AdvReac Type Severity Reaction Status Date / Time kiwi Allergy Mild Raw Verified 09/19/21 14:48 feeling in mouth Penicillins Allergy Verified 09/19/21 14:48 Review of Systems Constitutional Constitutional: Reports as per HPI and Reports system reviewed and no additional complaints, except as documented ENT Ears, Nose, Mouth, and Throat: Reports system reviewed and no additional complaints, except as documented and Reports as per HPI Cardiovascular Cardiovascular: Reports system reviewed and no additional complaints, except as documented Respiratory Respiratory: Reports as per HPI and Reports system reviewed and no additional complaints, except as documented Integumentary/Breasts Skin/Breast: Reports system reviewed and no additional complaints, except as documented Hematologic/Lymphatic On Anticoagulants: No Patient History Medical History Healthy adult Left shoulder strain Surgical History No pertinent past surgical history Social History Smoking Status: Former smoker substance use type: marijuana Smoking Status: Former smoker alcohol intake frequency: 0-2 drinks per day Substance Use Type: marijuana Exam Initial Vital Signs Initial Vital Signs: Vital Signs Temperature 99.0 F 11/22/21 19:02 Pulse Rate 114 H 11/22/21 19:02 Respiratory Rate 20 11/22/21 19:02 Blood Pressure 141/64 H 11/22/21 19:02 Pulse Oximetry 100 11/22/21 19:02 Resp Effort & Inspection: normal respiratory effort Auscultation: clear to auscultation bilaterally Cardio Rate: regular rate Rhythm: regular rhythm Skin General: no rashes or lesions noted Neuro General: patient alert, patient awake and moves all extremities Extrem General: normal to inspection and capillary refill normal Course Orders Ordered: ED Orders 11/22/21 19:16 COVID19 -Nasal swab/Pre-Proc Stat Vital Signs Vital signs: Vital Signs - 8 hr 11/22/21 19:02 Temperature 99.0 F Pulse Rate 114 H Respiratory Rate 20 Blood Pressure 141/64 H Pulse Oximetry 100 Medical Decision Making Lab Data Labs: Lab Results 11/22/21 Range/Units 19:16 SARS-CoV-2 (PCR) Positive H (Negative) MDM Narrative Medical decision making narrative: Patient is COVID positive. No respiratory distress. Lungs are clear. Is somewhat tachycardic suspect this is related to the COVID. No indication for admission to the hospital. We did discuss current guidelines for the car to quarantine. Discussed return precautions and follow-up instructions. Patient expressed understanding and agreement. Discharge Plan Departure Patient Disposition: Home Clinical Impression: COVID-19 Instructions: DI for COVID-19 (Suspected or Confirmed ) Activity Restrictions/Additional Instructions: You can take Tylenol for any fevers or body aches. Be sure to increase your fluid intake. Follow up current CDC guidelines with regard to COVID-19 quarantine. Return to the emergency department for any new or worsening symptoms. Prescriptions: No Action No Known Home Medications 0RF Referrals: Jan Marcano ARNP [Primary Care Provider] -
== END 2021-11-22 21:46 | disposition home or self-care (01) ==
PROVIDERS: Emergency Provider Emergency Medicine; PCP Registered Nurse Diabetes Educator
DX: U07.1 COVID-19 (principal); Z87.891 Personal history of nicotine dependence
CPT/HCPCS: 87635; 99281; C9803